=== PATIENT | female | born 1965 | race Caucasian/White ===

== ENCOUNTER 2018-12-09 14:53 | Emergency (ER) | payer BC, OTHER ==
[~2018-12-09] VITALS: Wt 90.9 kg
[2018-12-09] MEDS ORDERED: ALBUTEROL 0.083% (NEB) 2.5 MG/3 ML AMP NEB STA (17:52)
[2018-12-09] MEDS ORDERED: DEXAMETHASONE (1 MG/ML PO SYG) PO STA (17:52)
[2018-12-09] MEDS ORDERED: IPRATROPIUM (NEB) 0.5 MG/2.5 ML AMP NEB STA (17:52)
[2018-12-09 19:11] VITALS: BP 180/90
[2018-12-09] MEDS ORDERED: D-ME118S24 PO (19:41)
[2018-12-09] MEDS ORDERED: PULM180 INHALATION (19:41)
[2018-12-09] MEDS ORDERED: PRED20TA PO (19:41)
--- NOTE | 2018-12-09 19:42 | ERD ---
ER Documentation Chief Complaint Chief Complaint cough, congestion ROS All systems reviewed and are negative except as per history of present illness. Medications Home Meds Active Scripts Prednisone* (Prednisone*) 20 Mg Tab, 40 MG PO DAILY for cough/shortness of breath for 4 Days, #8 TAB Prov:GIO RAY DO 12/09/18 Budesonide (Pulmicort Flexhaler) 180 Mcg Aer.pow.ba, 2 PUFF INHALATION BID for shortness of breath, cough, #1 EA Prov:GIO RAY DO 12/09/18 D-Methorphan Hb/P-Epd HCl/Bpm (Neixlqtlen-Mkioadgvoqu-Wj Syr) 118 Ml Syrup, 5 ML PO Q4H PRN for COUGH for 7 Days, #1 BOTTLE Prov:GIO RAY DO 12/09/18 Allergies Allergies: Coded Allergies: No Known Allergy (Unverified , 12/09/18) PMhx/Soc History of Surgery: Yes (gall bladder, ) Anesthesia Reaction: No Hx Neurological Disorder: No Hx Respiratory Disorders: No Hx Cardiac Disorders: No Hx Psychiatric Problems: No Hx Miscellaneous Medical Probl: No Hx Alcohol Use: No Hx Substance Use: No Hx Tobacco Use: No Smoking Status: Never smoker Physical Exam Vitals Vital Signs Date Temp Pulse Resp B/P (MAP) Pulse Ox O2 O2 Flow FiO2 Time Delivery Rate 12/09/18 98.5 80 18 180/90 97 Room Air 19:11 (120) 12/09/18 81 20 98 21 18:09 12/09/18 99.4 85 20 189/99 97 14:56 (129) Physical Exam Const: No acute distress Head: Atraumatic Eyes: Normal Conjunctiva ENT: Normal External Ears, Nose and Mouth. Neck: Full range of motion. No meningismus. Resp: Clear to auscultation bilaterally Cardio: Regular rate and rhythm, no murmurs Abd: Soft, non tender, non distended. Normal bowel sounds Skin: No petechiae or rashes Back: No midline or flank tenderness Ext: No cyanosis, or edema Neur: Awake and alert Psych: Normal Mood and Affect Results 24 hrs Current Medications Medications Dose Sig/Paola Start Time Status Last (Trade) Ordered Route PRN Stop Time Admin Dose Reason Admin Albuterol 5 mg ONCE STAT 12/09/18 DC 12/09/18 (Proventil NEB 17:52 18:08 0.083% (Neb)) 12/09/18 17:55 Ipratropium 0.5 mg ONCE STAT 12/09/18 DC 12/09/18 [place] NEB 17:52 18:08 (Atrovent 12/09/18 17:55 0.02% (Neb)) 16 mg ONCE STAT 12/09/18 DC 12/09/18 Dexamethasone PO 17:52 18:23 (Decadron 12/09/18 17:55 Intensol Liquid) Departure Diagnosis: Primary Impression: Cough Condition: Fair Patient Instructions: Cough, Chronic, Uncertain Cause, (Adult) Referrals: [facility], [facility] YOU HAVE RECEIVED A MEDICAL SCREENING EXAM AND THE RESULTS INDICATE THAT YOU DO NOT HAVE A CONDITION THAT REQUIRES URGENT TREATMENT IN THE EMERGENCY DEPARTMENT. FURTHER EVALUATION AND TREATMENT OF YOUR CONDITION CAN WAIT UNTIL YOU ARE SEEN IN YOUR DOCTORS OFFICE WITHIN THE NEXT 1-2 DAYS. IT IS YOUR RESPONSIBILITY TO MAKE AN APPOINTMENT FOR FOLOW-UP CARE. IF YOU HAVE A PRIMARY DOCTOR --you should call your primary doctor and schedule an appointment IF YOU DO NOT HAVE A PRIMARY DOCTOR YOU CAN CALL OUR PHYSICIAN REFERRAL HOTLINE AT IF YOU CAN NOT AFFORD TO SEE A PHYSICIAN YOU CAN CHOSE FROM THE FOLLOWING [facility] [address] [facility] [address] [facility]. [facility] [address] [facility] [facility] [address] [facility]. [facility] [phone] [facility]. [facility]. [address] Additional Instructions: Llame al doctor MAANA y wendy viviana CARL PARA DENTRO DE 1-2 CALABRESE.Dgale a la secretaria que nosotros le instruimos hacer esta carl.Avise o llame si frausto condicin se empeora antes de la carl. Regresa aqui si peor o no mejor. GIO RAY DO Dec 09, 2018 19:42
[2018-12-09 19:46] VITALS: PULSE 78; RESP 20
== END 2018-12-09 19:46 | disposition home or self-care (01) ==
LOC: FTE 14:53
DX: R05 Cough (principal)
CPT/HCPCS: 94664; Z7502; Z7610

== ENCOUNTER 2018-12-27 12:05 | Emergency (ER) | payer OTHER ==
[~2018-12-27] VITALS: Ht 157.5 cm; Wt 91.1 kg
[~2018-12-27 12:05] MED LIST: D-ME118S24 PO; PRED20TA PO; PULM180 INHALATION
[2018-12-27 12:07] VITALS: BP 172/94; PULSE 80; RESP 19; Ht 157.5 cm; Wt 91.1 kg
[2018-12-27] MEDS ORDERED: ALBUTEROL 0.083% (NEB) 2.5 MG/3 ML AMP HHN STA (12:18)
[2018-12-27] MEDS ORDERED: IPRATROPIUM (NEB) 0.5 MG/2.5 ML AMP HHN ONE (12:30)
[2018-12-27] MEDS ORDERED: DEXAMETHASONE 10 MG/ML 1 ML INJ IM ONE (12:30)
[2018-12-27] MEDS ORDERED: BENZ-6 PO (12:49)
[2018-12-27] MEDS ORDERED: PRED20TA PO (12:49)
[2018-12-27] MEDS ORDERED: ALBU8.5H8 INH (12:49)
[2018-12-27] MEDS ORDERED: PROM6.2515 PO (12:49)
--- NOTE | 2018-12-27 13:18 | ERD ---
ER Documentation Chief Complaint Chief Complaint sinus congestion and head pain x 4 days denies fever HPI 53-year-old female presenting with cough and congestion. Patient states is been going for the last 4 days. She took azithromycin with no alleviation of symptoms. Denies fever. Has mild headache with nasal congestion. Medical history is asthma. NKDA. Surgical and Ericka. Social history denies ROS All systems reviewed and are negative except as per history of present illness. Medications Home Meds Active Scripts Albuterol Sulfate* (Proair HFA*) 8.5 Gm Hfa.aer.ad, 2 PUFF INH Q4, #1 INHALER Prov:JUDITH MULLINS PA-C 12/27/18 Prednisone* (Prednisone*) 20 Mg Tab, 40 MG PO DAILY for 4 Days, TAB Prov:JUDITH MULLINS PA-C 12/27/18 Benzonatate* (Tessalon Perle*) 100 Mg Capsule, 100 MG PO Q8H PRN for COUGH, #30 CAP Prov:JUDITH MULLINS PA-C 12/27/18 Promethazine Hcl* (Promethazine Hcl* Syrup) 6.25 Mg/5 Ml Syrup, 6.25 MG PO Q6H PRN for COUGH, #100 ML Prov:JUDITH MULLINS PA-C 12/27/18 Prednisone* (Prednisone*) 20 Mg Tab, 40 MG PO DAILY for cough/shortness of breath for 4 Days, #8 TAB Prov:IGO RAY DO 12/09/18 Budesonide (Pulmicort Flexhaler) 180 Mcg Aer.pow.ba, 2 PUFF INHALATION BID for shortness of breath, cough, #1 EA Prov:GIO RAY DO 12/09/18 D-Methorphan Hb/P-Epd HCl/Bpm (Nrlzuhsfmp-Mezuekhodze-He Syr) 118 Ml Syrup, 5 ML PO Q4H PRN for COUGH for 7 Days, #1 BOTTLE Prov:GIO RAY DO 12/09/18 Allergies Allergies: Coded Allergies: No Known Allergy (Unverified , 12/09/18) PMhx/Soc History of Surgery: Yes (gall bladder, ) Anesthesia Reaction: No Hx Neurological Disorder: No Hx Respiratory Disorders: No Hx Cardiac Disorders: No Hx Psychiatric Problems: No Hx Miscellaneous Medical Probl: No Hx Alcohol Use: No Hx Substance Use: No Hx Tobacco Use: No Smoking Status: Never smoker FmHx Family History: No diabetes, No coronary disease, No other Physical Exam Vitals Vital Signs Date Temp Pulse Resp B/P (MAP) Pulse Ox O2 O2 Flow FiO2 Time Delivery Rate 12/27/18 76 19 97 21 12:43 12/27/18 98.0 80 19 172/94 96 12:07 (120) Physical Exam GENERAL: The patient is well-appearing, well-nourished, in no acute distress HEENT: Atraumatic. Conjunctivae are pink. Pupils equal, round, and reactive to light. There is no scleral icterus. Tympanic membranes clear bilaterally. Oropharynx clear. NECK: C-spine is soft and supple. There is no meningismus. There is no cervical lymphadenopathy. CHEST: Breath sounds heard throughout with questionable rhonchi. No focal exam HEART: Regular rate and rhythm. No murmurs, clicks, rubs or gallops. Results 24 hrs Current Medications Medications Dose Sig/Paola Start Time Status Last (Trade) Ordered Route PRN Stop Time Admin Dose Reason Admin Albuterol 5 mg ONCE STAT 12/27/18 DC 12/27/18 (Proventil HHN 12:18 12:43 0.083% (Neb)) 12/27/18 12:21 Ipratropium 0.5 mg ONCE ONCE 12/27/18 DC 12/27/18 [place] HHN 12:30 12:42 (Atrovent 12/27/18 12:31 0.02% (Neb)) 10 mg ONCE ONCE 12/27/18 DC 12/27/18 Dexamethasone IM 12:30 12:33 (Decadron) 12/27/18 12:31 Procedures/MDM DIAGNOSTIC IMAGING REPORT Patient: ROBERT WAGNER : 1965 Age: 53 Sex: F MR #: [id number] DOS: 12/27/18 0000 Ordering MD: MARIA MULLINS PA-C Location: [facility] Room/Bed: PROCEDURE: XR Chest. CLINICAL INDICATION: Shortness of breath TECHNIQUE: Single portable view of the chest was obtained COMPARISON: CR CHEST 01/24/2008 FINDINGS: The trachea is midline. The cardiac silhouette and pulmonary vascularity are within normal limits. The lungs are clear. The costophrenic angles are sharp. IMPRESSION: 1. No evidence of acute cardiopulmonary disease. ER course: Decadron, albuterol, Atrovent breathing treatment given ED. Symptoms improved. MDM: 53-year-old female presenting with cough and congestion. I have low suspicion for pneumonia. I have low suspicion for respiratory distress or hypoxia. Patient is discharged with strict ER precautions and supportive medications. I do not feel antibiotics are indicated patient be discharged with supportive medications. Patient is recommended to follow-up with primary care. All questions answered at discharge Departure Diagnosis: Primary Impression: Cough Condition: Stable Patient Instructions: Cough, Chronic, Uncertain Cause, (Adult) Referrals: [facility] YOU HAVE RECEIVED A MEDICAL SCREENING EXAM AND THE RESULTS INDICATE THAT YOU DO NOT HAVE A CONDITION THAT REQUIRES URGENT TREATMENT IN THE EMERGENCY DEPARTMENT. FURTHER EVALUATION AND TREATMENT OF YOUR CONDITION CAN WAIT UNTIL YOU ARE SEEN IN YOUR DOCTORS OFFICE WITHIN THE NEXT 1-2 DAYS. IT IS YOUR RESPONSIBILITY TO MAKE AN APPOINTMENT FOR FOLOW-UP CARE. IF YOU HAVE A PRIMARY DOCTOR --you should call your primary doctor and schedule an appointment IF YOU DO NOT HAVE A PRIMARY DOCTOR YOU CAN CALL OUR PHYSICIAN REFERRAL HOTLINE AT IF YOU CAN NOT AFFORD TO SEE A PHYSICIAN YOU CAN CHOSE FROM THE FOLLOWING [facility] [address] [facility]. [facility] [address] [facility]. [place] [address] [facility] [facility] [address] [facility]. [facility] [address] [facility] [facility]. [address] Additional Instructions: FOLLOW UP WITH YOUR PRIMARY CARE PHYSICIAN TOMORROW.Return to this facility if you are not improving as expected. JUDITH MULLINS PA-C Dec 27, 2018 13:18
== END 2018-12-27 13:16 | disposition home or self-care (01) ==
LOC: E/R 12:05 → FTE 13:16
DX: R05 Cough (principal)
CPT/HCPCS: 71045; 94664; 96372; J1100; Z7502; Z7610

== ENCOUNTER 2019-01-06 15:00 | Emergency (ER) | payer OTHER ==
[~2019-01-06] VITALS: Wt 70.0 kg
[~2019-01-06 15:00] MED LIST changes: +ALBU8.5H8 INH; +BENZ-6 PO; +PROM6.2515 PO
[2019-01-06 15:06] VITALS: BP 160/84; PULSE 75; RESP 18
[2019-01-06] MEDS ORDERED: ALBUTEROL 0.083% (NEB) 2.5 MG/3 ML AMP HHN STA (16:19)
[2019-01-06] MEDS ORDERED: predniSONE 20 MG TAB PO ONE (16:30)
[2019-01-06] MEDS ORDERED: ALBU18HF INHALATION (17:18)
[2019-01-06] MEDS ORDERED: PRED20TA PO (17:18)
[2019-01-06] MEDS ORDERED: CETI10CA PO (17:19)
--- NOTE | 2019-01-06 17:32 | ERD ---
ER Documentation Chief Complaint Chief Complaint INTERMITTENT COUGH FOR THE PAST FEW MONTHS. NO FEVERS NO DISTRESS HPI 53-year-old female presents with intermittent cough and wheeze for last 2 months. She is out of albuterol. She has been seen here before and had a normal x-ray. She was treated with antibiotics as well. ROS All systems reviewed and are negative except as per history of present illness. Medications Home Meds Active Scripts Azithromycin* (Zithromax*) 250 Mg Tablet, 250 MG PO .RenitaPACK DIRECTED, #6 TAB TAKE 500 MG (2 TABS) THE FIRST DAY THEN 250 MG (1 TAB) DAYS 2-5 Prov:BRADLEY CORTEZ MD 01/06/19 Cetirizine Hcl* (Zyrtec*) 10 Mg Capsule, 10 MG PO DAILY, #30 TAB Prov:BRADLEY CORTEZ MD 01/06/19 Albuterol Sulfate* (Ventolin HFA*) 18 Gm Hfa.aer.ad, 2 PUFF INHALATION Q4H, #1 INHALER Prov:BRADLEY CORTEZ MD 01/06/19 Prednisone* (Prednisone*) 20 Mg Tab, 40 MG PO DAILY for 5 Days, TAB Prov:BRADLEY CORTEZ MD 01/06/19 Albuterol Sulfate* (Proair HFA*) 8.5 Gm Hfa.aer.ad, 2 PUFF INH Q4, #1 INHALER Prov:JUDITH MULLINS PA-C 12/27/18 Prednisone* (Prednisone*) 20 Mg Tab, 40 MG PO DAILY for 4 Days, TAB Prov:JUDITH MULLINS PA-C 12/27/18 Benzonatate* (Tessalon Perle*) 100 Mg Capsule, 100 MG PO Q8H PRN for COUGH, #30 CAP Prov:JUDITH MULLINS PA-C 12/27/18 Promethazine Hcl* (Promethazine Hcl* Syrup) 6.25 Mg/5 Ml Syrup, 6.25 MG PO Q6H PRN for COUGH, #100 ML Prov:JUDITH MULLINS PA-C 12/27/18 Prednisone* (Prednisone*) 20 Mg Tab, 40 MG PO DAILY for cough/shortness of breath for 4 Days, #8 TAB Prov:GIO RAY DO 12/09/18 Budesonide (Pulmicort Flexhaler) 180 Mcg Aer.pow.ba, 2 PUFF INHALATION BID for shortness of breath, cough, #1 EA Prov:GIO RAY DO 12/09/18 D-Methorphan Hb/P-Epd HCl/Bpm (Jgisfnbzat-Hqtgqyewimj-Ao Syr) 118 Ml Syrup, 5 ML PO Q4H PRN for COUGH for 7 Days, #1 BOTTLE Prov:GIO RAY DO 12/09/18 Allergies Allergies: Coded Allergies: No Known Allergy (Unverified , 12/09/18) PMhx/Soc History of Surgery: Yes (gall bladder, ) Anesthesia Reaction: No Hx Neurological Disorder: No Hx Respiratory Disorders: No Hx Cardiac Disorders: No Hx Psychiatric Problems: No Hx Miscellaneous Medical Probl: No Hx Alcohol Use: No Hx Substance Use: No Hx Tobacco Use: No Physical Exam Vitals Vital Signs Date Temp Pulse Resp B/P (MAP) Pulse Ox O2 O2 Flow FiO2 Time Delivery Rate 01/06/19 98 Room Air 17:58 01/06/19 75 18 98 21 17:05 01/06/19 98.6 75 18 160/84 98 15:06 (109) Physical Exam Const: No acute distress Head: Atraumatic Eyes: Normal Conjunctiva ENT: Normal External Ears, Nose and Mouth. Neck: Full range of motion. No meningismus. Resp: Clear to auscultation bilaterally Cardio: Regular rate and rhythm, no murmurs Abd: Soft, non tender, non distended. Normal bowel sounds Skin: No petechiae or rashes Back: No midline or flank tenderness Ext: No cyanosis, or edema Neur: Awake and alert Psych: Normal Mood and Affect Results 24 hrs Current Medications Medications Dose Sig/Paola Start Time Status Last (Trade) Ordered Route PRN Stop Time Admin Dose Reason Admin Prednisone 60 mg ONCE ONCE 01/06/19 DC 01/06/19 (Prednisone) PO 16:30 16:26 01/06/19 16:31 Albuterol 5 mg ONCE STAT 01/06/19 DC 01/06/19 (Proventil HHN 16:19 17:04 0.083% (Neb)) 01/06/19 16:20 Departure Diagnosis: Primary Impression: Wheeze Additional Impression: URI, acute Condition: Stable Patient Instructions: Asthma, Acute (Adult) Additional Instructions: . Cheque otro vez con frausto doctor primario en el proximo reddy or regresa para mas o nueva simptomas. BRADLEY CORTEZ MD Jan 06, 2019 17:32
[2019-01-06] MEDS ORDERED: AZIT250T PO (17:33)
== END 2019-01-06 17:59 | disposition home or self-care (01) ==
LOC: FTE 15:00
DX: J06.9 Acute upper respiratory infection, unspecified (principal)
CPT/HCPCS: 94664; J7512; Z7502; Z7610

== ENCOUNTER 2019-01-19 08:50 | Emergency (ER) | payer OTHER ==
[~2019-01-19] VITALS: Ht 154.9 cm; Wt 94.8 kg
[~2019-01-19 08:50] MED LIST changes: +ALBU18HF INHALATION; +AZIT250T PO; +CETI10CA PO
[2019-01-19 08:53] VITALS: BP 180/86; PULSE 83; RESP 17; Ht 154.9 cm; Wt 94.8 kg
[2019-01-19] MEDS ORDERED: ALBUTEROL 0.083% (NEB) 2.5 MG/3 ML AMP HHN STA (09:07)
[2019-01-19] MEDS ORDERED: DEXAMETHASONE 10 MG/ML 1 ML INJ IM ONE (09:30)
[2019-01-19] MEDS ORDERED: IPRATROPIUM (NEB) 0.5 MG/2.5 ML AMP HHN ONE (09:30)
[2019-01-19] MEDS ORDERED: PRED20TA PO (10:12)
[2019-01-19] MEDS ORDERED: BENZ-6 PO (10:12)
[2019-01-19] MEDS ORDERED: PROM6.2515 PO (10:12)
[2019-01-19] MEDS ORDERED: ALBU8.5H8 INH (10:12)
--- NOTE | 2019-01-19 11:45 | ERD ---
ER Documentation Chief Complaint Chief Complaint Pt with cough and congestion X 3 days. HPI 53-year-old female presenting with cough and congestion x3 days. Patient has had a productive cough with no fevers. No chest pain. Patient describes wheezing and has a history of asthma. She has not use any medications for her symptoms. Denies other medical problems. NKDA. Surgical history . Social history denies ROS All systems reviewed and are negative except as per history of present illness. Medications Home Meds Active Scripts Promethazine Hcl* (Promethazine Hcl* Syrup) 6.25 Mg/5 Ml Syrup, 6.25 MG PO Q6H PRN for COUGH, #100 ML Prov:JUDITH MULLINS PA-C 01/19/19 Benzonatate* (Tessalon Perle*) 100 Mg Capsule, 100 MG PO Q8H PRN for COUGH, #30 CAP Prov:JUDITH MULLINS PA-C 01/19/19 Prednisone* (Prednisone*) 20 Mg Tab, 40 MG PO DAILY for 4 Days, TAB Prov:JUDITH MULLINS PA-C 01/19/19 Albuterol Sulfate* (Proair HFA*) 8.5 Gm Hfa.aer.ad, 2 PUFF INH Q4, #1 INHALER Prov:JUDITH MULLINS PA-C 01/19/19 Azithromycin* (Zithromax*) 250 Mg Tablet, 250 MG PO .ZPACK DIRECTED, #6 TAB TAKE 500 MG (2 TABS) THE FIRST DAY THEN 250 MG (1 TAB) DAYS 2-5 Prov:BRADLEY CORTEZ MD 01/06/19 Cetirizine Hcl* (Zyrtec*) 10 Mg Capsule, 10 MG PO DAILY, #30 TAB Prov:BRADLEY CORTEZ MD 01/06/19 Albuterol Sulfate* (Ventolin HFA*) 18 Gm Hfa.aer.ad, 2 PUFF INHALATION Q4H, #1 INHALER Prov:BRADLEY CORTEZ MD 01/06/19 Prednisone* (Prednisone*) 20 Mg Tab, 40 MG PO DAILY for 5 Days, TAB Prov:BRADLEY CORTEZ MD 01/06/19 Albuterol Sulfate* (Proair HFA*) 8.5 Gm Hfa.aer.ad, 2 PUFF INH Q4, #1 INHALER Prov:JUDITH MULLINS PA-C 12/27/18 Prednisone* (Prednisone*) 20 Mg Tab, 40 MG PO DAILY for 4 Days, TAB Prov:JUDITH MULLINS PA-C 12/27/18 Benzonatate* (Tessalon Perle*) 100 Mg Capsule, 100 MG PO Q8H PRN for COUGH, #30 CAP Prov:JUDITH MULLINS PA-C 12/27/18 Promethazine Hcl* (Promethazine Hcl* Syrup) 6.25 Mg/5 Ml Syrup, 6.25 MG PO Q6H PRN for COUGH, #100 ML Prov:JUIDTH MULLINS PA-C 12/27/18 Prednisone* (Prednisone*) 20 Mg Tab, 40 MG PO DAILY for cough/shortness of breath for 4 Days, #8 TAB Prov:GIO RAY DO 12/09/18 Budesonide (Pulmicort Flexhaler) 180 Mcg Aer.pow.ba, 2 PUFF INHALATION BID for shortness of breath, cough, #1 EA Prov:GIO RAY DO 12/09/18 D-Methorphan Hb/P-Epd HCl/Bpm (Cbneuprryq-Iuzkktnsuho-Di Syr) 118 Ml Syrup, 5 ML PO Q4H PRN for COUGH for 7 Days, #1 BOTTLE Prov:GIO RAY DO 12/09/18 Allergies Allergies: Coded Allergies: No Known Allergy (Unverified , 12/09/18) PMhx/Soc History of Surgery: Yes (C SECTION X 2) Anesthesia Reaction: No Hx Neurological Disorder: No Hx Respiratory Disorders: Yes (ASTHMA) Hx Cardiac Disorders: No Hx Psychiatric Problems: No Hx Miscellaneous Medical Probl: No Hx Alcohol Use: Yes (OCCASSIONAL) Hx Substance Use: No Hx Tobacco Use: No Smoking Status: Never smoker FmHx Family History: No diabetes, No coronary disease, No other Physical Exam Vitals Vital Signs Date Temp Pulse Resp B/P (MAP) Pulse Ox O2 O2 Flow FiO2 Time Delivery Rate 01/19/19 90 20 98 21 09:25 01/19/19 98.5 83 17 180/86 97 08:53 (117) Physical Exam GENERAL: The patient is well-appearing, well-nourished, in no acute distress HEENT: Atraumatic. Conjunctivae are pink. Pupils equal, round, and reactive to light. There is no scleral icterus. Tympanic membranes clear bilaterally. Oropharynx clear. No nystagmus or photophobia. NECK: C-spine is soft and supple. There is no meningismus. There is no cervical lymphadenopathy. CHEST: Diffuse wheezing her auscultation. No focal rhonchi. No retractions. HEART: Regular rate and rhythm. No murmurs, clicks, rubs or gallops. Results 24 hrs Current Medications Medications Dose Sig/Paola Start Time Status Last (Trade) Ordered Route PRN Stop Time Admin Dose Reason Admin Albuterol 10 mg ONCE STAT 01/19/19 DC 01/19/19 (Proventil HHN 09:07 01/19/19 09:25 0.083% (Neb)) 09:09 Ipratropium 1 mg ONCE ONCE 01/19/19 DC 01/19/19 [place] HHN 09:30 01/19/19 09:25 (Atrovent 09:31 0.02% (Neb)) 10 mg ONCE ONCE 01/19/19 DC 01/19/19 Dexamethasone IM 09:30 01/19/19 09:24 (Decadron) 09:31 Procedures/MDM ER course: 1 hour breathing treatment given ED. IM Decadron given in ED. Upon reevaluation patient symptoms had improved. DM: 53-year-old female presenting with cough and congestion with wheezing. Patient received breathing treatment the ER. I have considered pneumonia however have low suspicion. Patient has reactive airway disease secondary to virus and I have low suspicion for infectious process requiring antibiotics. I have low suspicion for cardiac emergency. Patient is discharged with supportive medications and told to follow-up with primary care within 1 to 2 days for close evaluation. All questions answered at discharge Departure Diagnosis: Primary Impression: Wheezy bronchitis Condition: Stable Patient Instructions: Bronchitis With Wheezing (Adult) Referrals: COMM[facility] YOU HAVE RECEIVED A MEDICAL SCREENING EXAM AND THE RESULTS INDICATE THAT YOU DO NOT HAVE A CONDITION THAT REQUIRES URGENT TREATMENT IN THE EMERGENCY DEPARTMENT. FURTHER EVALUATION AND TREATMENT OF YOUR CONDITION CAN WAIT UNTIL YOU ARE SEEN IN YOUR DOCTORS OFFICE WITHIN THE NEXT 1-2 DAYS. IT IS YOUR RESPONSIBILITY TO MAKE AN APPOINTMENT FOR FOLOW-UP CARE. IF YOU HAVE A PRIMARY DOCTOR --you should call your primary doctor and schedule an appointment IF YOU DO NOT HAVE A PRIMARY DOCTOR YOU CAN CALL OUR PHYSICIAN REFERRAL HOTLINE AT IF YOU CAN NOT AFFORD TO SEE A PHYSICIAN YOU CAN CHOSE FROM THE FOLLOWING [facility] [address] [facility] [address] [facility] [address] [facility] [address] [facility] [address]. [facility] [address] Additional Instructions: FOLLOW UP WITH YOUR PRIMARY CARE PHYSICIAN TOMORROW.Return to this facility if you are not improving as expected. JUDITH MULLINS PA-C January 19, 2019 11:45
== END 2019-01-19 10:24 | disposition home or self-care (01) ==
LOC: FTE 08:50
DX: J20.9 Acute bronchitis, unspecified (principal); J45.901 Unspecified asthma with (acute) exacerbation
CPT/HCPCS: 94644; 96372; J1100; Z7502; Z7610

== ENCOUNTER 2019-06-23 12:03 | Emergency (ER) | payer OTHER ==
[~2019-06-23 12:03] MED LIST changes: +ALBU2.5V3 NEB; +FLUT12HF2 IH; +GUAI5SYR2 PO
[2019-06-23] MEDS ORDERED: DEXAMETHASONE 10 MG/ML 1 ML INJ IM ONE (22:30)
[2019-06-23] MEDS ORDERED: ALBUTEROL 0.083% (NEB) 2.5 MG/3 ML AMP INH ONE (22:30)
== END 2019-06-23 15:34 | disposition home or self-care (01) ==
LOC: E/R 12:03
DX: J45.901 Unspecified asthma with (acute) exacerbation (principal)
CPT/HCPCS: 94664; J1100; Z7610; 99282

== ENCOUNTER 2019-07-12 10:08 | Emergency (ER) | payer OTHER ==
[~2019-07-12] VITALS: Ht 162.6 cm; Wt 93.8 kg
[2019-07-12 10:10] VITALS: Ht 162.6 cm; Wt 93.8 kg
[2019-07-12] MEDS ORDERED: ALBUTEROL 0.083% (NEB) 2.5 MG/3 ML AMP HHN STA (10:38)
[2019-07-12] MEDS ORDERED: IPRATROPIUM (NEB) 0.5 MG/2.5 ML AMP HHN ONE (11:00)
[2019-07-12] MEDS ORDERED: DEXAMETHASONE 10 MG/ML 1 ML INJ IM ONE (11:00)
[2019-07-12 12:57] VITALS: BP 133/87; PULSE 82; RESP 18
== END 2019-07-12 12:59 | disposition home or self-care (01) ==
LOC: FTE 10:08
DX: R05 Cough (principal)
CPT/HCPCS: 71045; 94644; 96372; J1100; Z7502; Z7610